=== PATIENT | female | born 1950 | race African-American/Black ===

== ENCOUNTER 2016-12-05 05:40 | Day surgery (SDC) | payer MEDICARE, OTHER ==
[~2016-12-05 05:40] MED LIST: AMITIZA8 MCG PO; BENTYL20 PO; CELEXA20 PO; GLUCOPHAGE1000 MG PO; GLUCPH PO; HYDROCHLOROT25 MG PO; IND25 PO; K500 PO; LINZESS 290 M290 MCG PO; LORT7 PO; NORV10 PO; PRAVACHOL40 MG PO; PROTONIX PO; TRULICITY0.75 MG/0. SQ; Z300 PO; ZANTAC150 MG PO
[2017-02-10] MEDS ORDERED: MULTI-VIT HP PO (13:30)
[2017-02-10] MEDS ORDERED: ALEVE220 MG PO (13:31)
[2017-02-10] MEDS ORDERED: ASAB PO (13:31)
[2017-02-10] MEDS ORDERED: LIPITOR40 PO (15:29)
[2017-02-10] MEDS ORDERED: JANTOVEN5 MG PO (15:29)
== END 2016-12-05 23:59 | disposition home or self-care (01) ==
LOC: SDC 05:40
PROVIDERS: Orthopaedic Surgery
PROC: 3E0R3BZ Introduction of Anesthetic Agent into Spinal Canal, Percutaneous Approach (ICD-10-PCS; 2016-12-05)
PROC: 3E0R33Z Introduction of Anti-inflammatory into Spinal Canal, Percutaneous Approach (ICD-10-PCS; principal; 2016-12-05 07:00)
DX: M54.16 Radiculopathy, lumbar region (principal); E11.9 Type 2 diabetes mellitus without complications; F32.9 Major depressive disorder, single episode, unspecified; I10 Essential (primary) hypertension; M19.90 Unspecified osteoarthritis, unspecified site; Z98.51 Tubal ligation status; Z98.890 Other specified postprocedural states; Z87.891 Personal history of nicotine dependence
CPT/HCPCS: 82962; J2250; J3010; Q9967

== ENCOUNTER 2017-02-20 05:23 | Day surgery (SDC) | payer MEDICARE, OTHER ==
[~2017-02-20 05:23] MED LIST changes: +ALEVE220 MG PO; +ASAB PO; +JANTOVEN5 MG PO; +LIPITOR40 PO; +MULTI-VIT HP PO
[2017-02-20 06:25] LABS: INTERNATIONAL NORMAL RATI 1.2 UNITS (-); PROTIME (NOT ORD) 14.9 SEC (12.0-14.5)
== END 2017-02-20 08:45 | disposition home or self-care (01) ==
LOC: SDC 05:23
PROVIDERS: Orthopaedic Surgery
PROC: 3E0S3BZ Introduction of Anesthetic Agent into Epidural Space, Percutaneous Approach (ICD-10-PCS; 2017-02-20)
PROC: 3E0S33Z Introduction of Anti-inflammatory into Epidural Space, Percutaneous Approach (ICD-10-PCS; principal; 2017-02-20 07:15)
DX: M51.16 Intervertebral disc disorders with radiculopathy, lumbar region (principal); M48.06 Spinal stenosis, lumbar region; M54.5 Low back pain; E11.9 Type 2 diabetes mellitus without complications; E89.0 Postprocedural hypothyroidism; I49.9 Cardiac arrhythmia, unspecified; I10 Essential (primary) hypertension; M19.90 Unspecified osteoarthritis, unspecified site; M10.9 Gout, unspecified; Z79.84 Long term (current) use of oral hypoglycemic drugs; Z79.01 Long term (current) use of anticoagulants; Z79.82 Long term (current) use of aspirin; Z79.899 Other long term (current) drug therapy; Z98.51 Tubal ligation status; Z98.42 Cataract extraction status, left eye; Z96.1 Presence of intraocular lens; Z87.891 Personal history of nicotine dependence
CPT/HCPCS: 82962; 85610; J2250; J3010; Q9967